=== PATIENT | female | born 1990 ===

== ENCOUNTER → 2022-09-06 13:41 | Outpatient (BNVA) | payer OTHER, SELFPAY | PROVIDERS: Visit Provider Obstetrics & Gynecology | DX: Z34.90 Encounter for supervision of normal pregnancy, unspecified, unspecified trimester (principal); Z34.80 Encounter for supervision of other normal pregnancy, unspecified trimester | CPT/HCPCS: 81000 ==

== ENCOUNTER → 2022-09-20 09:50 | Outpatient (BNVA) | payer OTHER, SELFPAY | PROVIDERS: Visit Provider Obstetrics & Gynecology | DX: Z34.80 Encounter for supervision of other normal pregnancy, unspecified trimester (principal) | CPT/HCPCS: 81000; 87081 ==

== ENCOUNTER 2022-09-22 09:24 | Outpatient (CLI) | payer OTHER, SELFPAY ==
--- NOTE | 2022-09-22 09:30 | US_ITS ---
WS: [id number] LIMITED OBSTETRICAL ULTRASOUND HISTORY: Z34.90 - Encounter for supervision of normal , u... COMPARISON: None available. Presentation: Vertex. Cervix: Partially obscured by the head. Appears closed and measured approximately 3.5 cm in [facility]. Placenta: Fundal, no previa or abruption. Grade: 1 HEART: FHR of 157 BPM. measurements: BPD = 9.1 cm = 37w0d; 71st percentile HC = 32.8 cm = 37w1d; 34th percentile AC = 31.6 cm = 35w3d; 27th percentile FL = 7.2 cm = 37w0d; 55th percentile RAMOS: 13.0 cm EFW: 2881 g; 57th percentile AGA by ultrasound: 36w5d LAURA by ultrasound: 10/15/2022 US/[place] [id number] IMPRESSION: 1. Single intrauterine gestation of 36 weeks 5 days with an EDC of 10/15/2022. 2. No prior study for comparison to evaluate for appropriate growth. Internal biometry measurements are within 2 weeks of each parameter. 3. Normal amniotic fluid. 4. Grade 1 placenta.
== END 2022-09-22 09:25 | disposition home or self-care (01) ==
PROVIDERS: PCP Obstetrics & Gynecology; Visit Provider Obstetrics & Gynecology
DX: Z34.93 Encounter for supervision of normal pregnancy, unspecified, third trimester (principal)
CPT/HCPCS: 76816; 81000

== ENCOUNTER → 2022-09-27 10:28 | Outpatient (BNVA) | payer OTHER, SELFPAY | PROVIDERS: PCP Obstetrics & Gynecology; Visit Provider Obstetrics & Gynecology | DX: Z34.80 Encounter for supervision of other normal pregnancy, unspecified trimester (principal) | CPT/HCPCS: 81000 ==

== ENCOUNTER 2022-10-04 15:15 | Outpatient (CLI) | payer OTHER, SELFPAY ==
[2022-10-04 15:42] VITALS: BP 115/72; PULSE 71
[2022-10-04 15:57] VITALS: BP 117/70; PULSE 66
[2022-10-04 16:02] LABS: Basophils % 0.1 %; Eosinophils # 0.1 10^3/uL (0.0-0.8); Eosinophils % 0.7 %; Hematocrit 37.2 % (37.0-47.0); Hemoglobin 12.1 g/dL (11.5-15.3); Lymphocytes # 1.6 10^3/uL (0.8-4.8); Mean Corpuscular HGB Conc 32.5 g/dL (30.0-36.0); Mean Corpuscular Hemoglobin 27.4 pg (28.0-34.0); Mean Corpuscular Volume 84.4 fl (81-99); Mean Platelet Volume 12.5 fL (7.4-10.4); Monocytes # 0.8 10^3/uL (0.2-0.9); Monocytes % 10.7 %; Neutrophils # 5.13 10^3/uL (1.8-7.7); Neutrophils % 67.2 %; Nucleated Red Blood Cells % 0 %; Platelet Count 235 10^3/cmm (130-400); Red Blood Count 4.41 10^6/uL (4.1-5.3); Red Cell Distribution Width 15.1 % (12.1-15.1); White Blood Count 7.6 10^3/uL (4.0-10.0)
[2022-10-04 16:13] VITALS: BP 114/62; PULSE 64
[2022-10-04 16:13] LABS: Add Urine Microscopic? YES; Bilirubin Urine Neg (Negative); Blood Urine Neg (Negative); Glucose Urine UA Norm (Normal); Ketones Urine 1+ (Negative); Leukocyte Esterase Urine 2+ (Negative); Nitrate Urine Negative (Negative); Protein Urine Neg (Negative); Urine Appearance Hazy (CLEAR); Urine Color Yellow (Yellow); Urobilinogen Urine Norm (Negative); pH Urine 6 (5-7)
[2022-10-04 16:14] LABS: Alanine Aminotransferase 15 U/L (0-33); Albumin Level 3.7 g/dL (3.5-5.2); Alkaline Phosphatase 146 U/L (35-105); Anion Gap 15.9 (5-19); Aspartate Amino Transferase 13 U/L (0-32); Blood Urea Nitrogen 5 mg/dL (6-20); Calcium 8.9 mg/dL (8.5-10.5); Carbon Dioxide 20 mmol/L (22-29); Chloride 104 mmol/L (98-107); Globulin 3.5 g/dL (1.3-4.6); Glomerular Filtration Rate 186.2 mL/min (90-130); Glucose 100 mg/dL (65-115); Osmolality Calculated 279 mOsm/kg (285-295); Potassium 3.9 mmol/L (3.5-5.1); RBC Urine 0-4 /hpf (0-2); Sodium 136 mmol/L (136-145); Total Bilirubin 0.2 mg/dL (0.15-1.2); Total Protein 7.2 g/dL (6.6-8.7); Uric Acid 4.6 mg/dL (2.4-5.7); WBC Urine 15-25 /hpf (0-5)
[2022-10-04 16:16] LABS: Add Urine Culture? Yes; Bacteria Urine 1+ /hpf; Mucus Urine TRACE /hpf
[2022-10-04 16:21] VITALS: BMI 30.4
[2022-10-04 16:23] LABS: Urine Creatinine 137 mg/dL (28-217); Urine Protein Random 14 mg/dL
[2022-10-04 16:28] VITALS: BP 116/72; PULSE 74
[2022-10-04 16:40] VITALS: BP 116/72; PULSE 74
== END 2022-10-04 16:40 | disposition home or self-care (01) ==
LOC: OPOB 15:20 → OBGYN 15:21
PROVIDERS: PCP Obstetrics & Gynecology; Visit Provider Obstetrics & Gynecology
DX: O16.9 Unspecified maternal hypertension, unspecified trimester (principal); O26.899 Other specified pregnancy related conditions, unspecified trimester; R51.9 Headache, unspecified; Z3A.00 Weeks of gestation of pregnancy not specified
CPT/HCPCS: 36415; 59025; 80053; 81000; 81001; 82570; 84156; 84550; 85025; 87086; 99211

== ENCOUNTER → 2022-10-11 10:35 | Outpatient (BNVA) | payer OTHER, SELFPAY | PROVIDERS: PCP Obstetrics & Gynecology; Visit Provider Obstetrics & Gynecology | DX: Z34.80 Encounter for supervision of other normal pregnancy, unspecified trimester (principal) | CPT/HCPCS: 81000 ==

== ENCOUNTER 2022-10-14 13:04 | Inpatient (IN) | payer OTHER, SELFPAY ==
[2022-10-14] VITALS (23 sets, daily range): BP systolic 100–149; BP diastolic 51–87; PULSE 69–105; RESP 16–17; TEMP 36.3–37.1; BMI 37.5
[2022-10-14 13:16] LABS: Basophils % 0.2 %; Eosinophils % 0.4 %; Hematocrit 37.2 % (37.0-47.0); Hemoglobin 12.1 g/dL (11.5-15.3); Lymphocytes # 1.9 10^3/uL (0.8-4.8); Lymphocytes % 19.5 %; Mean Corpuscular HGB Conc 32.5 g/dL (30.0-36.0); Mean Corpuscular Hemoglobin 27.3 pg (28.0-34.0); Mean Corpuscular Volume 83.8 fl (81-99); Mean Platelet Volume 12.6 fL (7.4-10.4); Monocytes # 1.1 10^3/uL (0.2-0.9); Monocytes % 10.7 %; Neutrophils # 6.75 10^3/uL (1.8-7.7); Neutrophils % 68.9 %; Nucleated Red Blood Cells % 0 %; Platelet Count 255 10^3/cmm (130-400); Red Blood Count 4.44 10^6/uL (4.1-5.3); White Blood Count 9.8 10^3/uL (4.0-10.0)
--- NOTE | 2022-10-14 14:15 | PM.OPHPUD ---
Labor & Delivery H&P Update Date of Procedure: October 14, 2022 Date H&P Performed: 10/11/22 H&P update information: I have reviewed H&P completed within last 30 days, I have examined patient prior to procedure and Changes to prior documentation as noted here Changes to previous documentation: The patient presents in active labor at 39 weeks, 4 days Admission Diagnosis: at 39w4d
[2022-10-14] MEDS: dextrose 5%-lactated ringers 1,000 ML 125 ML IV (14:20)
[2022-10-14] MEDS: lidocaine 2% INJ 20 mL INJECTION (14:20)
--- NOTE | 2022-10-14 14:38 | PM.DELIVERY ---
Delivery Note: Date of delivery: October 14, 2022 Pre-delivery diagnoses: iup@ 39w4d, active labor Post-delivery diagnoses: same Procedure: Delivering Physician: malena Estimated blood loss (mL): 200 Findings: term male in the JOSE presentation Pre-Delivery Course: The patient was admitted in active labor. She was dilated to 9 cm and I performed AROM with thin meconium stained fluid. She had complete cervical dilation with the net contraction Delivery: The patient had complete cervical dilation and began to push. The head delivered in the JOSE position over an intact perineum under no anesthesia. The nose and mouth were bulb suctioned. The shoulders and body delivered atraumatically. The baby was placed onto the mother's abdomen. The cord was clamped and cut. Cord blood was obtained. The placenta delivered spontaneously. It was inspected and found to be intact. Inspection of the perineum revealed a second-degree perineal laceration. This was repaired in the usual fashion. Estimated blood loss 200 mL. Apgars on baby were 9 at 1 minute and 10 at 5 minutes. Weight of baby is 7 pounds 3 ounces. Mother and baby were stable post delivery. Coding Level of Care Code Acute Code for Chg Fwd Diagnoses
[2022-10-14] MEDS: HYDROcodone-acetaminophen 5-325 mg Tablet PO (15:01)
[2022-10-14] MEDS: ibuprofen 800 mg tablet PO ×2 (15:01→22:27)
[2022-10-15 00:39] VITALS: BP 103/50; PULSE 77
[2022-10-15 04:11] VITALS: BP 111/54; PULSE 82
[2022-10-15] MEDS: benzocaine-menthol 78 gm Canister 1 SPRAY TOPICAL (04:51)
[2022-10-15] MEDS: acetaminophen 325 mg Tablet 650 MG PO (04:58)
[2022-10-15 05:23] LABS: Hematocrit 31.6 % (37.0-47.0); Hemoglobin 10.1 g/dL (11.5-15.3); Mean Corpuscular Hemoglobin 27.4 pg (28.0-34.0); Mean Corpuscular Volume 85.6 fl (81-99); Mean Platelet Volume 12.2 fL (7.4-10.4); Platelet Count 203 10^3/cmm (130-400); Red Blood Count 3.69 10^6/uL (4.1-5.3); Red Cell Distribution Width 15.3 % (12.1-15.1); White Blood Count 10.7 10^3/uL (4.0-10.0)
[2022-10-15] MEDS: docusate sodium 100 mg Capsule PO (09:29)
[2022-10-15] MEDS: prenatal vitamin Capsule 1 CAP PO (09:29)
[2022-10-15] MEDS: ibuprofen 800 mg tablet PO ×2 (09:29→15:24)
[2022-10-15 09:40] VITALS: BP 122/63; PULSE 83; RESP 16; TEMP 36.9
[2022-10-15] MEDS: lanolin oint 7 gm 1 APPLIC TOPICAL (09:52)
[2022-10-15] MEDS: HYDROcodone-acetaminophen 5-325 mg Tablet PO (11:43)
--- NOTE | 2022-10-15 12:46 | P.DS_ITS ---
Discharge Providers Date of Admission: 10/14/22 13:04 Date of Discharge: October 15, 2022 Attending Provider at Admission: Shyanne Meza MD Attending Provider at Discharge: Shyanne Meza MD Primary Care Provider: Dickson Davidson MD Reason for Visit Reason for Visit: contracts - 5min Hospital Course Hospital Course The patient was admitted in active labor. She had spontaneous delivery of a term male . She did well and was ready for discharge on day #1 Physical Exam Narrative: The patient is doing well this morning. No concerns. Const: COMMON NORMALS: no acute distress, patient oriented x3, no limitations, healthy appearing, alert and well nourished GENERAL APPEARANCE: cooperative, comfortable, well kempt and well developed ORIENTATION/CONSCIOUSNESS: Yes awake, Yes oriented to person, Yes oriented to place and Yes oriented to time Resp: COMMON NORMALS: normal respiratory effort EFFORT & INSPECTION: Yes able to speak in complete sentences GI: COMMON NORMALS: Soft to palpation and non-tender PALPATION: Yes Soft to palpation Extremity: COMMON NORMALS: no calf tenderness Neuro: COMMON NORMALS: patient oriented x3 SENSORIUM/ORIENTATION: Yes alert, Yes oriented to person, Yes oriented to place and Yes oriented to time Psych: APPEARANCE: Yes well kempt Discharge Data Studies Completed and Pending Pending at discharge Category Date Time Status Retype for Patiets ABO/Rh Routine Lab 10/14/22 15:17 Ordered Laboratory Results WBC 10.7 10^3/uL (4.0-10.0) H 10/15/22 05:06 RBC 3.69 10^6/uL (4.1-5.3) L 10/15/22 05:06 Hgb 10.1 g/dL (11.5-15.3) L 10/15/22 05:06 Hct 31.6 % (37.0-47.0) L 10/15/22 05:06 MCV 85.6 fl (81-99) 10/15/22 05:06 MCH 27.4 pg (28.0-34.0) L 10/15/22 05:06 MCHC 32.0 g/dL (30.0-36.0) 10/15/22 05:06 RDW 15.3 % (12.1-15.1) H 10/15/22 05:06 Plt Count 203 10^3/cmm (130-400) 10/15/22 05:06 MPV 12.2 fL (7.4-10.4) H 10/15/22 05:06 Neut % (Auto) 68.9 % 10/14/22 12:20 Lymph % (Auto) 19.5 % 10/14/22 12:20 [place] % (Auto) 10.7 % 10/14/22 12:20 Eos % (Auto) 0.4 % 10/14/22 12:20 Baso % (Auto) 0.2 % 10/14/22 12:20 Neut # (Auto) 6.75 10^3/uL (1.8-7.7) 10/14/22 12:20 Lymph # (Auto) 1.9 10^3/uL (0.8-4.8) 10/14/22 12:20 Weak[place] # (Auto) 1.1 10^3/uL (0.2-0.9) H 10/14/22 12:20 Eos # (Auto) 0.0 10^3/uL (0.0-0.8) 10/14/22 12:20 Baso # (Auto) 0.0 10^3/uL (0.0-0.1) 10/14/22 12:20 Nucleated RBC % (auto) 0 % 10/14/22 12:20 Nucleated RBCs # 0.0 /100WBC 10/14/22 12:20 Blood Type O Positive 10/14/22 12:20 Rho(D) Type Positive 10/14/22 12:20 Antibody Screen Negative 10/14/22 12:20 Vitals Last Vital Signs Temp 98.5 F 10/15/22 09:40 Pulse 83 10/15/22 09:40 Resp 16 10/15/22 09:40 BP 122/63 10/15/22 09:40 O2 Del Method Room Air 10/14/22 14:51 Discharge Plan Discharge Patient Disposition: Home Condition: Stable Prescriptions: Continued prenat.vits,maria eugenia,[id number] Tablet 1 tab PO DAILY ferrous sulfate [Feosol] 325 mg (65 mg iron) tablet 325 mg PO DAILY (DME) breast pump Device See Rx Instructions .Route Qty: 1 0RF Rx Instructions: As directed Discharge Orders: Discharge Order (Routine); Ordered 10/15/22 Ordered By: Shyanne Meza Patient Instructions: Opioid Safety Discharge Attestations Time Spent in Discharge Care*: less than 30 min Quality Metrics Clinical Quality Measures [ No reported AMI, CVA or VTE this stay] Coding Level of Care Code Acute Code for Chg Fwd Diagnoses
[2022-10-15 16:06] VITALS: BP 95/52; PULSE 75; RESP 16; TEMP 36.9
[2022-10-15 16:55] VITALS: BP 125/69; PULSE 90; RESP 16; TEMP 37
[2022-10-15 18:43] VITALS: BP 125/69; PULSE 90; RESP 16; TEMP 37
== END 2022-10-15 18:55 | disposition home or self-care (01) | DRG 807 ==
LOC: OPOB 13:04 → OBGYN 13:04
PROVIDERS: Admitting Provider Obstetrics & Gynecology; PCP Obstetrics & Gynecology; Visit Provider Obstetrics & Gynecology
DX: O77.0 Labor and delivery complicated by meconium in amniotic fluid (principal); Z37.0 Single live birth; Z3A.39 39 weeks gestation of pregnancy; O70.1 Second degree perineal laceration during delivery
CPT/HCPCS: 36415; 59025; 59409; 85025; 85027; 86850; 86900; 99211; J7040; J7121